=== PATIENT | female | born 1995 | race Caucasian/White ===

== ENCOUNTER 2018-12-19 13:43 | Emergency (ER) | payer BC ==
[~2018-12-19] VITALS: Ht 162.6 cm; Wt 65.1 kg
[2018-12-19 13:45] VITALS: TEMP 98.5
[2018-12-19] MEDS ORDERED: BIRTH CONTROL (14:14)
[2018-12-19] MEDS ORDERED: MEDROL 4MG DOSPA4 MG PO (14:44)
[2018-12-19 15:02] VITALS: BP 108/63; PULSE 73
== END 2018-12-19 15:03 | disposition home or self-care (01) ==
LOC: COL.ER 13:43
DX: L50.9 Urticaria, unspecified (principal); T78.40XA Allergy, unspecified, initial encounter